=== PATIENT | male | born 2000 | race Caucasian/White ===

== ENCOUNTER 2022-06-03 19:13 | Emergency (ER) | payer OTHER ==
[2022-06-03] MEDS ORDERED: PROCTOZONE-HC 230 GM TOP (20:27)
== END 2022-06-03 20:30 | disposition home or self-care (01) ==
LOC: FER 19:13
DX: S90.861A Insect bite (nonvenomous), right foot, initial encounter (principal); F17.210 Nicotine dependence, cigarettes, uncomplicated; W57.XXXA Bitten or stung by nonvenomous insect and other nonvenomous arthropods, initial encounter; Z28.310 Unvaccinated for COVID-19
CPT/HCPCS: 99282